=== PATIENT | female | born 1990 | race Caucasian/White ===

== ENCOUNTER 2019-08-19 00:13 | Emergency (ER) | payer MEDICAID ==
[~2019-08-19] VITALS: Ht 162.6 cm; Wt 72.0 kg
[2019-08-19 01:30] VITALS: BP 107/74
== END 2019-08-19 01:30 | disposition home or self-care (01) ==
LOC: ER 00:13
DX: Z20.828 Contact with and (suspected) exposure to other viral communicable diseases (principal)
CPT/HCPCS: 87635; 99281; C9803